=== PATIENT | male | born 1975 | race Caucasian/White ===

== ENCOUNTER → 2017-12-25 | Outpatient (CLI) | payer OTHER ==
[2017-12-25 16:47] LABS: ALBUMIN 3.8 g/dL (3.4-5.0); BILIRUBIN,DIRECT 0.06 mg/dL (0-0.2); TOTAL PROTEIN 7.9 g/dL (6.4-8.2)
[2017-12-27 22:03] LABS: HEPATITIS A ANTIBODY IGM Negative (Negative)
[2017-12-28 08:02] LABS: ANTI-NUCLEAR ANTIBODY TEST None Detected (None Detected); COPPER LEVEL 94 ug/dL (70-140); HEPATITIS B CORE IGM Negative (Negative); HEPATITIS B SURFACE ANTIGEN Negative (Negative)
== END ==
LOC: LAB 15:58 → EDBD 15:58
PROVIDERS: ATTEND Internal Medicine Gastroenterology
DX: R94.5 Abnormal results of liver function studies (principal)
CPT/HCPCS: 36415; 80074; 80076; 82103; 82390; 82525; 82728; 83550; 84466; 85610; 86256; 86308

== ENCOUNTER 2020-03-08 02:10 | Inpatient (IN) ==
[2020-03-08 02:28] VITALS: BMI 42.7
--- NOTE | 2020-03-08 02:51 | DR.GENAD ---
HPI Time Seen Time Seen by Provider: 03/08/20 02:49 PCP Primary Care Physician: BRETT HPI Comment HPI Comment: PATIENT HAVE ANASAKA WITH INCREASE RESPIRATORY DISTRESS. NO FEVER. PATIENT IS SWOLLEN ALL OVER. HAVE INCREASE HIS WEIGHT. SWELLING IN HIS ABDOMEN IS PRESSING ON ORGANS IN UPPER CHEST. HISTORY CHF. BP ELEVATED IN ER AND HAVE HISTORY OF HYPERTENSION. Complaint/Symptoms Chief Complaint Doctors Comments: PATIENT IS 44YR OLD MALE WITH HISTORY OF CHF IS IN ER WITH INCREASIN SOB AND ABDOMINAL DISTENSION TIMES SEVERAL DAYS WORSE TODAY..PATIENT IS SWOLLEN ALL OVER. HAVE CHEST PRESSURE. Chief Complaint:: DIFFICULTY BREATHING-STOMACH PRESSURE COVID-19 Coronavirus risk:travel/contact w/high risk person: No Has patient experienced Coronavirus symptoms: No Nurses notes reviewed Nurses Notes Review: Yes Source History Provided: Patient Mode of Arrival Mode of Arrival: Ambulatory Timing Onset of Chief Complaint: 03/08/20 Came on: Suddenly Duration Duration: Constant Duration: Hours Modifying Factors Improves:: EXERTION. Associated Signs and Symptoms Associated Signs and Symptoms: REST. Other History Other History: CHF, PTSD. PMH PMH Past Medical History: Yes Past Medical History: Anxiety, CHF and Depression Past Medical History Comment: PTSD Past Surgical History: Yes Surgical History: Ortho Surgery Family History History of Family Medical Conditions: No Social History Does patient currently use any type of tobacco product: Yes Have you used tobacco products in the last 12 months: Yes Type of Tobacco Use: Cigarettes How many years tobacco product used: 15 Does any household member use tobacco: No Alcohol Use: Occasionally Do you use any recreational Drugs:: Yes (THC) Lives With: Alone Lives Where: Home Infectious screening In the last 2 months have you had wt loss of >10#?: NO Have you had fever, night sweats or hemotysis?: No Have you traveled outside the country in the last 6 months?: No Isolation: Standard ROS Review of Systems Constitutional: See HPI, Weakness and Fatigue; negative Fever Eyes: No Symptoms Reported and See HPI; negative Blurred Vision, Photophobia and Diplopia ENTM: No Symptoms Reported and See HPI; negative Ear Pain, Nose Discharge, Nose Congestion and Throat Pain Respiratoy: See HPI, Moist Cough and Short of Breath; negative Wheezing Cardiovascular: See HPI, Chest Pain and Edema Gastrointestinal/Abdominal: See HPI, Abdominal Pain and Other (ADDOMINAL DISTENSION.); negative Diarrhea, Nausea and Vomiting Genitourinary: No Symptoms Reported and See HPI; negative Dysuria, Frequency and Hematuria Neurological: See HPI, Headache and Weakness; negative Dizziness Musculoskeletal: See HPI, Back Pain and Muscle Pain Integumentary: See HPI and Change in Color; negative Rash and Juandice Hematologic/Lymphatic: See HPI, Easy Bleeding and Easy Bruising; negative Swollen Glands Endocrine: See HPI and Increased Urine; negative Increased Thirst and Decreased Appetite Psychiatric: No Symptoms Reported and See HPI All Other Systems: Reviewed and Negative PE Vital Signs Vitals: Temperature 97.6 F Pulse Rate [Apical] 123 Pulse Rate 118 Respiratory Rate 26 Blood Pressure [Left Arm] 191/145 Blood Pressure 216/142 O2 Sat by Pulse Oximetry 95 General Limitations: No Limitations General Appearance: Alert and In Distress Head Head Exam: Normal Inspection and Atraumatic Eyes Eye exam: Normal Appearance and PERRL; negative Scleral Icterus and Conjunctival Injection ENT ENT Exam: Normal Exam, Normal Oropharynx, Normal External Ear Exam and TM's Normal Bilaterally External Ear Exam: Normal External Inspection; negative Mastoid Tenderness TM/Canal Exam: Bilateral: Normal Nose Exam: Normal Nose Exam; negative Sinus Tenderness, Nasal Deviation and Septal Hematoma Mouth Exam: Normal Inspection; negative Lip Swelling and Tongue Swelling Throat Exam: Normal Inspection; negative Tonsillar Erythema, Tonsillomegaly and Tonsillar Exudate Neck Neck Exam: Normal Inspection and Trachea Midline; negative Tenderness and Lymphadenopathy Chest Chest Inspection: Normal Inspection and Symmetric Chest Wall Rise; negative Tenderness Respiratory Respiratory Exam: Prolonged Expiratory Phase and Respiratory Distress; negative Accessory Muscle Use and Chest Wall Tenderness Respiratory Exam: Bilateral: Wheezing and Bilateral: Rhonchi and Lower: Wheezing and Lower: Rhonchi Cardiovascular Cardiovascular Exam: Regular Rate, Normal Rhythm, Normal Heart Sounds and +S3; negative Systolic Murmur and Diastolic Murmur Abdominal Exam Abdominal Exam: Normal Inspection, Normal Bowel Sounds and Soft; negative Te nderness Extremities Extremities Exam: Normal Inspection, Normal Capillary Refill and Edema; negative Tenderness and Calf Tenderness Back Back Exam: Normal Inspection and Paraspinal Tenderness; negative Tenderness, (R) CVA Tenderness and (L) CVA Tenderness Neurologic Neurological Exam: Alert, Oriented X3 and CN II-XII Intact; negative Motor Sensory Deficit Psychiatric Psychiatric Exam: Normal Affect and Normal Mood Skin Skin Exam: Other (3 PLUS EDEMA.) MDM Differential Diagnosis Differential Diagnosis: CHF, PNEUMONIA, ASCITIS, ANASAKA, PNEUMOTHORAX. COURSE Treatment Treatment: SEE ORDERS. Education/Counseling Education/Counseling: Patient Educated On: Diagnosis and Needs for Follow Up ROR Labs Reviewed Laboratory Results Reviewed?: Yes Result Diagrams: 03/08/20 03:04 03/08/20 03:04 Laboratory: WBC 16.5 X10^3/uL (3.6-10.0) H 03/08/20 03:04 RBC 5.57 X10^6/uL (4.7-6.0) 03/08/20 03:04 Hgb 16.3 g/dL (13.5-18.0) 03/08/20 03:04 Hct 50.4 % (42.0-54.0) 03/08/20 03:04 MCV 90.5 fL (80.0-100.0) 03/08/20 03:04 MCH 29.4 pg (27.0-34.0) 03/08/20 03:04 MCHC 32.4 g/dL (33.0-35.0) L 03/08/20 03:04 RDW 15.1 % (11.6-16.5) 03/08/20 03:04 Plt Count 206 X10^3/uL (150.0-450.0) 03/08/20 03:04 MPV 9.0 fL (7.4-11.0) 03/08/20 03:04 Neut % (Auto) 77.1 % (42.0-75.0) H 03/08/20 03:04 Lymph % (Auto) 12.7 % (21.0-51.0) L 03/08/20 03:04 [place] % (Auto) 9.3 % (0.0-13.0) 03/08/20 03:04 Eos % (Auto) 0.3 % (0.9-2.9) L 03/08/20 03:04 Baso % (Auto) 0.6 % (0.2-1.0) 03/08/20 03:04 Neut # (Auto) 12.7 x10^3/uL (2.2-4.8) H 03/08/20 03:04 Lymph # (Auto) 2.1 X10^3/uL (1.3-2.9) 03/08/20 03:04 [place] # (Auto) 1.5 x10^3/uL (0.3-0.8) H 03/08/20 03:04 Eos # (Auto) 0.1 x10^3/uL (0.0-0.2) 03/08/20 03:04 Baso # (Auto) 0.1 X10^3/uL (0.0-0.1) 03/08/20 03:04 Absolute Nucleated RBC 0.0 /100WBC 03/08/20 03:04 Sodium 144 mmol/L (136-145) 03/08/20 03:04 Corrected Sodium TNP 03/08/20 03:04 Potassium 4.2 mmol/L (3.5-5.1) 03/08/20 03:04 Chloride 104 mmol/L (98-107) 03/08/20 03:04 Carbon Dioxide 29.1 mmol/L (21-32) 03/08/20 03:04 BUN 23 mg/dL (7-18) H 03/08/20 03:04 Creatinine 1.49 mg/dL (0.70-1.30) H 03/08/20 03:04 Est GFR (MDRD) Af Amer > 60 (>60) 03/08/20 03:04 Est GFR (MDRD) Non-Af 55 (>60) L 03/08/20 03:04 Glucose 105 mg/dL (65-99) H 03/08/20 03:04 Calcium 8.9 mg/dL (8.5-10.1) 03/08/20 03:04 Corrected Calcium TNP 03/08/20 03:04 Total Bilirubin 1.70 mg/dL (0.2-1.0) H 03/08/20 03:04 AST 39 Units/L (15-37) H 03/08/20 03:04 ALT 44 Units/L (12-78) 03/08/20 03:04 Alkaline Phosphatase 64 Units/L (46-116) 03/08/20 03:04 Creatine Kinase 295 Units/L (39-308) 03/08/20 06:06 CK-MB (CK-2) 9.6 ng/mL (0-4.0) H* 03/08/20 06:06 CK/CKMB % Calc 3.3 % (<4) 03/08/20 06:06 Troponin I 0.11 ng/mL (0-1.5) 03/08/20 06:06 Total Protein 7.1 g/dL (6.4-8.2) 03/08/20 03:04 Albumin 3.4 g/dL (3.4-5.0) 03/08/20 03:04 Globulin 3.7 g/dL (2.5-4.5) 03/08/20 03:04 Albumin/Globulin Ratio 0.9 Ratio (1.1-2.1) L 03/08/20 03:04 XRAY XRAY Interpreted by: Radiologist (REPORTS NOTED AND DISCUSSED WITH PATIENT.) EKG Rate: 114 [place]: RAD Rhythm: ST Block: None Hypertrophy: LAE ST: Old, Ant, Lat and Infarct Opioid Opioid Risk Tool Age (Maulik box if 16-45): Yes Total: 1 Total Score Risk Category: Low Risk Copyright: [facility] predicting aberrant behaviors Diagnosis Discharge Problem: Anasarca, Acute pericardial effusion, Accelerated hypertension CHF (congestive heart failure) Qualifiers: Heart failure type: combined systolic and diastolic Heart failure chronicity: acute on chronic Qualified Code(s): I50.43 - Acute on chronic combined systolic (congestive) and diastolic (congestive) heart failure Abdominal ascites Qualifiers: Ascites type: malignant Qualified Code(s): R18.0 - Malignant ascites Instructions Forms: Excuse From Work Precautions for COVID19 Patient Portal Social Distancing
[2020-03-08] MEDS ORDERED: LASIX IVP ONE ×3 (03:08→09:55)
[2020-03-08 03:24] LABS: BASOPHILS # (AUTO) 0.1 X10^3/uL (0.0-0.1); BASOPHILS % (AUTO) 0.6 % (0.2-1.0); EOSINOPHILS # (AUTO) 0.1 x10^3/uL (0.0-0.2); EOSINOPHILS % (AUTO) 0.3 % (0.9-2.9); HEMATOCRIT 50.4 % (42.0-54.0); HEMOGLOBIN 16.3 g/dL (13.5-18.0); LYMPHOCYTES # (AUTO) 2.1 X10^3/uL (1.3-2.9); LYMPHOCYTES % (AUTO) 12.7 % (21.0-51.0); MEAN CORPUSCULAR HEMOGLOBIN 29.4 pg (27.0-34.0); MEAN CORPUSCULAR HGB CONC 32.4 g/dL (33.0-35.0); MEAN CORPUSCULAR VOLUME 90.5 fL (80.0-100.0); MONOCYTES # (AUTO) 1.5 x10^3/uL (0.3-0.8); MONOCYTES % (AUTO) 9.3 % (0.0-13.0); NEUTROPHILS # (AUTO) 12.7 x10^3/uL (2.2-4.8); NEUTROPHILS % (AUTO) 77.1 % (42.0-75.0); PLATELET COUNT 206 X10^3/uL (150.0-450.0); RED BLOOD COUNT 5.57 X10^6/uL (4.7-6.0); RED CELL DISTRIBUTION WIDTH 15.1 % (11.6-16.5); WHITE BLOOD COUNT 16.5 X10^3/uL (3.6-10.0)
[2020-03-08 03:37] LABS: BLOOD UREA NITROGEN 23 mg/dL (7-18); CALCIUM 8.9 mg/dL (8.5-10.1); CARBON DIOXIDE 29.1 mmol/L (21-32); CHLORIDE 104 mmol/L (98-107); CREATININE 1.49 mg/dL (0.70-1.30); SODIUM 144 mmol/L (136-145); eGFR NON BLACK RACES 55 (>60)
--- NOTE | 2020-03-08 03:42 | RAD ---
STUDY: CHEST, 1 VIEWCOMPARISON: NoneHISTORY: DIFFICULTY BREATHING-STOMACH PRESSUREFINDINGS:Cardiomegaly is noted. There is a moderate to large sized left-sided pleural effusion. There is hazy airspace disease in the right mid and right lower lung zone. No right-sided pleural effusion is seen. No evidence of pneumothorax.IMPRESSION:1. Large left pleural effusion2. CardiomegalyElectronically signed by: Christopher Verdin (Mar 08, 2020 03:40:58)
[2020-03-08 04:00] LABS: ALANINE AMINOTRANSFERASE 44 Units/L (12-78); ALBUMIN 3.4 g/dL (3.4-5.0); ALKALINE PHOSPHATASE 64 Units/L (46-116); ASPARTATE AMINO TRANSFERASE 39 Units/L (15-37); CKMB % 3.1 % (<4); CREATINE KINASE 273 Units/L (39-308); TOTAL PROTEIN 7.1 g/dL (6.4-8.2)
[2020-03-08 04:04] LABS: CREATINE KINASE MB 8.5 ng/mL (0-4.0)
[2020-03-08] MEDS ORDERED: CATAPRES TAB 0.2 MG PO ONE ×2 (04:22→06:04)
[2020-03-08] MEDS ORDERED: CATAPRES TAB 0.2 MG ONE ×2 (04:25→06:07)
--- NOTE | 2020-03-08 06:41 | CT ---
HISTORYAbdominal painSTUDYABDOMEN/PELVIS W/O CONTechnique: Axial noncontrast images with coronal and sagittal reformats. Dose reduction procedures were used with mA/kv adjusted for body size. THIS EXAMINATION IS LIMITED DUE TO THE LACK OF INTRAVENOUS AND ORAL CONTRAST. The examination was performed in this manner at the SOLE discretion of the ordering caregiver and without input from Radiology.COMPARISONNoneFINDINGSBilateral pleural effusions are identified. The heart is enlarged. Th ere is a pericardial effusion maximum width 2.57 cm. Atelectatic changes are present in both lung bas es left greater than right. There is a moderately large amount of ascites present. Anasarca is presen t. The liver is normal in size and configuration without focal space-occupying disease only to the li mitations of an unenhanced examination. The spleen and adrenal glands are normal only to the limitati ons of an unenhanced examination. The pancreas is normal to the limitations of an unenhanced examinat ion. The kidneys are unobstructed. No right renal calculi are identified. There is a tiny nonobstruct ing left lower pole renal calculus present. No ureteral calculi are identified. The abdominal aorta i s normal in caliber. No intraperitoneal or retroperitoneal lymphadenopathy of significance is identif ied. The appendix is not identified with absolute certainty. There are no secondary signs of appendic itis present. There are no findings suggestive of colitis or diverticulitis. Examination of the pelvi s demonstrated no evidence for pelvic masses, pelvic fluid, or pelvic lymphadenopathy. No bladder abn ormality is identified. No lytic or blastic skeletal lesions of significance are identified.IMPRESSIO NModerately large amount of ascites present along with anasarca and bilateral pleural effusionsCardio megaly without congestive heart failurePericardial effusion maximum width 2.57 cmTiny nonobstructing left nephrolithiasisLIMITED EXAMINATION DUE TO THE LACK OF INTRAVENOUS AND ORAL CONTRAST.Electronical ly signed by: JELLY GROVE (Mar 08, 2020 06:39:30)
[2020-03-08 06:53] LABS: CKMB % 3.3 % (<4); TROPONIN I 0.11 ng/mL (0-1.5)
[2020-03-08 06:57] LABS: CREATINE KINASE MB 9.6 ng/mL (0-4.0)
[2020-03-08] MEDS: LASIX IVP SCH ×2 (09:59→16:45)
[2020-03-08 10:57] LABS: BILIRUBIN,URINE NEGATIVE (NEGATIVE); BLOOD/HEMOGLOBIN,URINE 1+ (NEGATIVE); GLUCOSE, URINE NEGATIVE (NEGATIVE); KETONES,URINE NEGATIVE (NEGATIVE); LEUKOCYTE ESTERASE ,URINE NEGATIVE (NEGATIVE); NITRITES,URINE NEGATIVE (NEGATIVE); PH,URINE 6.5 (5.0 - 8.0); PROTEIN,URINE 3+ (NEGATIVE); UROBILINOGEN,URINE NORMAL (NORMAL)
[2020-03-08 11:24] LABS: APPEARANCE,URINE CLOUDY (CLEAR); COLOR,URINE YELLOW (YELLOW)
[2020-03-08 11:26] LABS: BACTERIA,URINE NEGATIVE /HPF (NEGATIVE); RBC,URINE NONE SEEN /HPF (0-3); SQUAMOUS EPITHELIAL CELL,UR FEW /HPF (NEGATIVE)
[2020-03-08] MEDS ORDERED: TOPROL XL PO ONE (12:37)
[2020-03-08 13:29] LABS: CKMB % 3.3 % (<4); TROPONIN I 0.11 ng/mL (0-1.5)
[2020-03-08 13:39] LABS: CREATINE KINASE MB 8.9 ng/mL (0-4.0)
[2020-03-08 16:06] LABS: AMMONIA 47 umol/L (11-32)
[2020-03-08] MEDS ORDERED: NS 250 ML IV 250 ML IV ONE (16:40)
[2020-03-08] MEDS: LEVAQUIN PREMIX IV 500 MG 500 MG/100 ML BAG IV SCH (16:45)
[2020-03-08 19:32] LABS: TROPONIN I 0.1 ng/mL (0-1.5)
[2020-03-08 19:36] LABS: CREATINE KINASE MB 8.6 ng/mL (0-4.0)
[2020-03-09 06:50] LABS: ALANINE AMINOTRANSFERASE 37 Units/L (12-78); ALBUMIN 3.2 g/dL (3.4-5.0); ALKALINE PHOSPHATASE 60 Units/L (46-116); ASPARTATE AMINO TRANSFERASE 33 Units/L (15-37); BASOPHILS # (AUTO) 0.1 X10^3/uL (0.0-0.1); BASOPHILS % (AUTO) 0.4 % (0.2-1.0); BLOOD UREA NITROGEN 26 mg/dL (7-18); CALCIUM 8.6 mg/dL (8.5-10.1); CHLORIDE 103 mmol/L (98-107); COR CA(FOR HYPOALB) 9.2 mg/dL (8.5-10.1); CREATININE 1.16 mg/dL (0.70-1.30); EOSINOPHILS % (AUTO) 0.1 % (0.9-2.9); HEMATOCRIT 47.3 % (42.0-54.0); LYMPHOCYTES # (AUTO) 1.5 X10^3/uL (1.3-2.9); LYMPHOCYTES % (AUTO) 11.5 % (21.0-51.0); MEAN CORPUSCULAR HEMOGLOBIN 28.9 pg (27.0-34.0); MEAN CORPUSCULAR HGB CONC 31.8 g/dL (33.0-35.0); MEAN CORPUSCULAR VOLUME 90.9 fL (80.0-100.0); MONOCYTES # (AUTO) 1.5 x10^3/uL (0.3-0.8); MONOCYTES % (AUTO) 11.1 % (0.0-13.0); NEUTROPHILS % (AUTO) 76.9 % (42.0-75.0); PLATELET COUNT 201 X10^3/uL (150.0-450.0); RED CELL DISTRIBUTION WIDTH 14.9 % (11.6-16.5); SODIUM 142 mmol/L (136-145); TOTAL PROTEIN 7.1 g/dL (6.4-8.2); eGFR NON BLACK RACES > 60 (>60)
--- NOTE | 2020-03-09 08:54 | DR.H&P ---
H&P - History & Physical for Day of: H&P Date: 03/08/20 - Chief Complaint Chief Complaint: SOB, SWELLING, ABDOMINAL SWELLING, CHEST PRESSURE - History of Present Illness History of Present Illness: IS A 44 YEAR OLD WHITE MALE WHO PRESENTED TO THE ER WITH COMPLAINTS OF SHORTNESS OF BREATH, GENERALIZED SWELLING, ABDOMINAL DISTENTION, AND CHEST PRESSURE. HE REPORTS THAT SYMTOMS STARTED SEVERAL DAYS AGO AND HAVE PROGRESSIVELY GOTTEN WORSE. HE HAS A PMH OF CHF, HYPERTENSION, AND DRUG ABUSE. HE DENIES USE OF MEDICATIONS FOR CHRONIC CONDITIONS. HE WAS NOTED WITH 3+ PITTING EDEMA AND ABDOMINAL DISTENTION. BILATERAL LUNGS NOTED WITH RHONCHI. ON ARRIVAL, VITALS WERE 97.6-118-24-95%-216/142. LABS WERE OBTAINED. ABNORMAL LAB VALUES INCLUDE THE FOLLOWING: WBC 16.5, INR 1.53, BUN 23, CREATININE 1.49, GLUCOSE 105, TOTAL BILI 1.70, AST 39, CK-MB 8.5. URINALYSIS IS UNREMARKABLE. HE WAS SWABBED FOR COVID- 19. A CHEST XRAY WAS OBTAINED AND REVEALED: Cardiomegaly is noted. There is a moderate to large sized left-sided pleural effusion. There is hazy airspace disease in the right mid and right lower lung zone. No right-sided pleural effusion is seen. No evidence of pneumothorax. EKG REVEALED SINUS TACHYCARDIA WITH HR 114. AN ABDOMEN/PELVIS CT WITHOUT CONTRAST WAS OBTAINED AND REVEALED: Moderately large amount of ascites present along with anasarca and bilateral pleural effusions. Cardiomegaly without congestive heart failure. Pericardial effusion maximum width 2.57 cm. Tiny nonobstructing left nephrolithiasis. AN ECHO WAS OBTAINED AND REVEALED AN EJECTION FRACTION OF 44%. HE WAS GIVEN LASIX 40MG IV X 1, CATAPRES 0.2MG PO X 2 DOSES IN THE ER. BLOOD PRESSURE DECREASED TO 155/91. HE WAS ADMITTED FOR FURTHER EVALUATION AND TREATMENT OF CHF, ANASARCA, PLEUR EFFUSION, AND A PERICARDIAL EFFUSION, AND ASCITES. HE WAS STARTED ON LASIX 40MG IV BID, ALBUMIN 25% IV DAILY, AND LEVAQUIN 500MG IV DAILY. WE WILL CONSULT WITH , GENERAL SURGEON DUE TO LARGE PLEURAL AND PERICARDIAL EFFUSIONS. OTHERWISE, WE WILL FOLLOW UP WITH AM LABS AND CONTINUE TO MONITOR. - Past Medical History Past Medical History: Depression, Anxiety, CHF - Past Surgical History Surgical History: Ortho Surgery - Family History Family Medical History: Hypertension - Social History Does patient currently use any type of tobacco product: Yes Have you used tobacco products in the last 12 months: Yes Type of Tobacco Use: Cigarettes How many years tobacco product used: 15 Does any household member use tobacco: No Alcohol Use: None Drug Use: None - Medications Home Medications: Penicillins Allergy (Verified 03/08/20 03:15) - Review of Systems Constitutional: See HPI, Weakness Eyes: No Symptoms Reported ENT: No Symptoms Reported Respiratory: See HPI, Cough, Shortness of Breath, SOB with Excertion Cardiovascular: Chest Pain, Edema (3+ GENERALIZED EDEMA ) Gastrointestinal: See HPI, Abdominal Pain, Other (ABDOMINAL DISTENTION ) Genitourinary: No Symptoms Reported Musculoskeletal: No Symptoms Reported Skin: No Symptoms Reported Neurological: Weakness - Physical Exam Vital Signs: Temperature 98.3 F Pulse Rate [Apical] 102 Pulse Rate 118 Respiratory Rate 23 Blood Pressure [Left Arm] 150/93 Blood Pressure 216/142 O2 Sat by Pulse Oximetry 95 Oriented: Normal Eyes: Normal Ear: Normal Nose: Normal Throat: Normal Respiratory: Rhonchi Throughout Cardiovascular: Tachycardia, Edema (3+ GENERALIZED EDEMA ). negative: S3, S4, Murmur : Normal Auscultation: Bowel Sounds: Normal Palpation: Normal Tenderness: Normal Skin: Normal Musculoskeletal: Normal Psychiatric: Normal Mood Description: Calm Affect: Normal Speech Pattern: Clear - Assessment/Plan (1) CHF (congestive heart failure) Qualifiers: Heart failure type: combined systolic and diastolic Heart failure chronic ity: acute on chronic Qualified Code(s): I50.43 - Acute on chronic combined systolic (congestive) and diastolic (congestive) heart failure Status: Acute Plan: ADMIT, LASIX 40MG IV BID, ALBUMIN 25% DAILY, LEVAQUIN 500MG IV DAILY, CONTINUE TO MONITOR (2) Acute pericardial effusion Status: Acute Plan: CONSULT GENERAL SURGERY, CONTINUE TO MONITOR (3) Pleural effusion Status: Acute (4) Anasarca Status: Acute (5) Abdominal ascites Qualifiers: Ascites type: other type Qualified Code(s): R18.8 - Other ascites Status: Acute (6) Accelerated hypertension Status: Acute - Allergies Allergies/Adverse Reactions: Allergies Allergy/AdvReac Type Severity Reaction Status Date / Time Penicillins Allergy Verified 03/08/20 03:15
--- NOTE | 2020-03-09 09:00 | RAD ---
HISTORYPLEURAL EFFUSION, PERSISTANT SOB, COUGHSTUDYCHEST, 1 [id number]/27/2020FINDINGSNo change from prior examination demonstrating cardiomegaly and large left-sided pleural effusion. No definite airspace opacity identified within the right lung however there is likely a small right-sided pleural effusion.IMPRESSIONNo change from prior examination demonstrating persistent cardiomegaly, large left-sided pleural effusion and likely small right-sided pleural effusion.Electronically signed by: YEFRI GIFFORD (Mar 09, 2020 08:58:41)
[2020-03-09] MEDS: LEVAQUIN PREMIX IV 500 MG 500 MG/100 ML BAG IV SCH (09:10)
[2020-03-09] MEDS: LASIX IVP SCH ×2 (09:10→17:45)
[2020-03-09 09:30] LABS: CKMB % 2.9 % (<4); TROPONIN I 0.06 ng/mL (0-1.5)
[2020-03-09 09:37] LABS: CREATINE KINASE MB 6.2 ng/mL (0-4.0)
[2020-03-09] MEDS: CORTISPORIN OTIC SUSP AFF EAR SCH ×2 (10:09→20:24)
[2020-03-09] MEDS: ALBUMIN HUMAN 25%- 100 ML 100 ML IV SCH (10:45)
[2020-03-09] MEDS: LOVENOX INJ 40 MG SYR SC SCH (12:20)
[2020-03-10] MEDS ORDERED: CATAPRES TAB 0.2 MG PO ONE (01:11)
[2020-03-10] MEDS ORDERED: CATAPRES TAB 0.2 MG ONE (01:13)
--- NOTE | 2020-03-10 05:53 | RAD ---
STUDY: CHEST, 1 VIEWCOMPARISON: March 09, 2020HISTORY: CHFFINDINGS:Cardiomediastinal contour in large left pleural effusion are stable. Moderate degree of fluid overload is again noted. Pleural parenchymal lung markings are unchanged from the prior study. No gross pneumothorax is seen. No evidence of right-sided pleural effusion. Exam is limited due to poor inspiratory effort.IMPRESSION:There is no significant change from prior study.Electronically signed by: Christohper Verdin (Mar 10, 2020 05:52:22)
[2020-03-10] MEDS: LASIX IVP SCH ×3 (06:11→17:06)
[2020-03-10 06:36] LABS: BASOPHILS # (AUTO) 0.1 X10^3/uL (0.0-0.1); BASOPHILS % (AUTO) 0.8 % (0.2-1.0); EOSINOPHILS # (AUTO) 0.1 x10^3/uL (0.0-0.2); EOSINOPHILS % (AUTO) 0.8 % (0.9-2.9); HEMATOCRIT 43.8 % (42.0-54.0); HEMOGLOBIN 14.2 g/dL (13.5-18.0); LYMPHOCYTES # (AUTO) 1.3 X10^3/uL (1.3-2.9); LYMPHOCYTES % (AUTO) 12.4 % (21.0-51.0); MEAN CORPUSCULAR HEMOGLOBIN 29.5 pg (27.0-34.0); MEAN CORPUSCULAR HGB CONC 32.4 g/dL (33.0-35.0); MEAN CORPUSCULAR VOLUME 90.9 fL (80.0-100.0); MEAN PLATELET VOLUME 8.8 fL (7.4-11.0); MONOCYTES # (AUTO) 1.1 x10^3/uL (0.3-0.8); MONOCYTES % (AUTO) 11.3 % (0.0-13.0); NEUTROPHILS # (AUTO) 7.5 x10^3/uL (2.2-4.8); NEUTROPHILS % (AUTO) 74.7 % (42.0-75.0); PLATELET COUNT 173 X10^3/uL (150.0-450.0); RED BLOOD COUNT 4.82 X10^6/uL (4.7-6.0); WHITE BLOOD COUNT 10.1 X10^3/uL (3.6-10.0)
[2020-03-10 06:52] LABS: AMMONIA 50 umol/L (11-32)
[2020-03-10 07:24] LABS: ALANINE AMINOTRANSFERASE 37 Units/L (12-78); ALBUMIN 3.3 g/dL (3.4-5.0); ALKALINE PHOSPHATASE 61 Units/L (46-116); ASPARTATE AMINO TRANSFERASE 29 Units/L (15-37); BLOOD UREA NITROGEN 28 mg/dL (7-18); CALCIUM 8.4 mg/dL (8.5-10.1); CARBON DIOXIDE 32.1 mmol/L (21-32); CHLORIDE 105 mmol/L (98-107); CKMB % 3.4 % (<4); COR NA(FOR HYPERGLY) 145 mmol/L (136-145); CREATINE KINASE 135 Units/L (39-308); CREATININE 1.15 mg/dL (0.70-1.30); SODIUM 145 mmol/L (136-145); TOTAL PROTEIN 6.9 g/dL (6.4-8.2); TROPONIN I 0.07 ng/mL (0-1.5); eGFR NON BLACK RACES > 60 (>60)
[2020-03-10 07:25] LABS: CREATINE KINASE MB 4.6 ng/mL (0-4.0)
[2020-03-10] MEDS: LOVENOX INJ 40 MG SYR SC SCH (09:17)
[2020-03-10] MEDS: LEVAQUIN PREMIX IV 500 MG 500 MG/100 ML BAG IV SCH (09:17)
[2020-03-10] MEDS: CORTISPORIN OTIC SUSP AFF EAR SCH ×2 (09:18→21:00)
--- NOTE | 2020-03-10 09:38 | PCM.PROG ---
Progress Note - Progress Note for Day of Date of Exam: 03/09/20 - Subjective Subjective: IS BEING TREATED FOR CHF, ACUTE PERICARDIA EFFUSION, PLEURAL EFFUSION, ANASARCA, ASCITES, AND HYPERTENSION. TODAY, HE IS ALERT AND ORIENTED, LYING IN BED ON MORNING ROUNDS. HE CONTINUES WITH COMPLAINTS OF SHORTNESS OF BREATH AND SWELLING. HE ALSO REPORTS AN EARACHE. ON EXAMINATION, HEART IS REGULAR IN RATE AND RHYTHM. BILATERAL LUNGS ARE NOTED WITH RHONCHI THROUGHOUT. ABDOMEN IS DISTENDED AND NON-TENDER WITH NORMAL BOWEL SOUNDS NOTED IN ALL QUADRANTS. HE IS NOTED WITH GENERALIZED 2+ PITTING EDEMA. HIS VITALS THIS MORNING ARE: 98.6-105-26-93%-126/88. LABS WERE OBTAINED. ABNORMAL LAB VALUES INCLUDE THE FOLLOWING: WBC 13.0, BUN 26, GLUCOSE 108, TOTAL BILI 1.60, ALBUMIN 3.2, CK-MB 6.2, BNP 522. A CHEST XRAY WAS REPEATED AND REVEALED: No change from prior examination demonstrating cardiomegaly and large left-sided pleural effusion. No definite airspace opacity identified within the right lung however there is likely a small right-sided pleural effusion. HE IS CURRENTLY RE CEIVING LASIX 40MG IV BID, ALBUMIN 25% IV DAILY, AND LEVAQUIN 500MG IV DAILY. TODAY, WE WILL ADD CORTISPORIN EAR DROPS. WE WILL CONSULT WITH THIS MORNING DUE TO LARGE PLEURAL AND PERICARDIAL EFFUSIONS. WE WILL ALSO RESTRICT FLUIDS TO LESS THAN 1 LITER/DAY. OTHERWISE, WE WILL FOLLOW UP WITH AM LABS AND CHEST XRAY AND CONTINUE TO MONITOR. - Past Medical Family Social History Past Med/Fam/Surg Hx: No changes since H&P Allergies: Allergies Penicillins Allergy (Verified 03/08/20 03:15) - Review of Systems ROS: No change since H&P - Vital Signs and I&O's Vital Signs: Temperature 98.5 F Pulse Rate [Apical] 99 Pulse Rate 118 Respiratory Rate 20 Blood Pressure [Left Arm] 156/102 Blood Pressure 216/142 O2 Sat by Pulse Oximetry 91 Intake and Output: Intake & Output 03/07/20 03/08/20 03/09/20 03/10/20 11:59 11:59 11:59 11:59 Intake Total 1530 / 1530 1010 / 1010 Output Total 925 / 925 2700 / 2700 3800 / 3800 Balance -925 / -925 -1170 / -1170 -2790 / -2790 - Physical Exam Oriented: Normal Eyes: Normal Ear: Normal Nose: Normal Throat: Normal Respiratory: Generalized, Diminished, Rhonchi Cardiovascular: Tachycardia, Edema (3+ GENERALIZED EDEMA ). negative: S3, S4, Murmur : Normal Auscultation: Bowel Sounds: Normal Palpation: Normal Tenderness: Normal Skin: Normal Musculoskeletal: Normal Psychiatric: Normal Mood Description: Calm Affect: Normal Speech Pattern: Clear, Appropriate - Laboratory and Diagnostics Result Diagrams: 03/10/20 05:25 03/10/20 05:25 Labs: Laboratory WBC 10.1 X10^3/uL (3.6-10.0) H 03/10/20 05:25 RBC 4.82 X10^6/uL (4.7-6.0) 03/10/20 05:25 Hgb 14.2 g/dL (13.5-18.0) 03/10/20 05:25 Hct 43.8 % (42.0-54.0) 03/10/20 05:25 MCV 90.9 fL (80.0-100.0) 03/10/20 05:25 MCH 29.5 pg (27.0-34.0) 03/10/20 05:25 MCHC 32.4 g/dL (33.0-35.0) L 03/10/20 05:25 RDW 15.0 % (11.6-16.5) 03/10/20 05:25 Plt Count 173 X10^3/uL (150.0-450.0) 03/10/20 05:25 MPV 8.8 fL (7.4-11.0) 03/10/20 05:25 Neut % (Auto) 74.7 % (42.0-75.0) 03/10/20 05:25 Lymph % (Auto) 12.4 % (21.0-51.0) L 03/10/20 05:25 [place] % (Auto) 11.3 % (0.0-13.0) 03/10/20 05:25 Eos % (Auto) 0.8 % (0.9-2.9) L 03/10/20 05:25 Baso % (Auto) 0.8 % (0.2-1.0) 03/10/20 05:25 Neut # (Auto) 7.5 x10^3/uL (2.2-4.8) H 03/10/20 05:25 Lymph # (Auto) 1.3 X10^3/uL (1.3-2.9) 03/10/20 05:25 [place] # (Auto) 1.1 x10^3/uL (0.3-0.8) H 03/10/20 05:25 Eos # (Auto) 0.1 x10^3/uL (0.0-0.2) 03/10/20 05:25 Baso # (Auto) 0.1 X10^3/uL (0.0-0.1) 03/10/20 05:25 Absolute Nucleated RBC 0.0 /100WBC 03/10/20 05:25 PT 17.9 SECONDS (11.8-14.3) 03/09/20 05:26 INR Target Range - 03/09/20 05:26 INR 1.53 (0.8-1.3) H 03/09/20 05:26 APTT 32.2 SECONDS (22.9-36.5) 03/09/20 05:26 PTT Comment - 03/09/20 05:26 Sodium 145 mmol/L (136-145) 03/10/20 05:25 Corrected Sodium 145 mmol/L (136-145) 03/10/20 05:25 Potassium 3.9 mmol/L (3.5-5.1) 03/10/20 05:25 Chloride 105 mmol/L (98-107) 03/10/20 05:25 Carbon Dioxide 32.1 mmol/L (21-32) H 03/10/20 05:25 BUN 28 mg/dL (7-18) H 03/10/20 05:25 Creatinine 1.15 mg/dL (0.70-1.30) 03/10/20 05:25 Est GFR (MDRD) Af Amer > 60 (>60) 03/10/20 05:25 Est GFR (MDRD) Non-Af > 60 (>60) 03/10/20 05:25 Glucose 114 mg/dL (65-99) H 03/10/20 05:25 Calcium 8.4 mg/dL (8.5-10.1) L 03/10/20 05:25 Corrected Calcium 9.0 mg/dL (8.5-10.1) 03/10/20 05:25 Magnesium 2.0 mg/dL (1.7-2.9) 03/09/20 05:26 Total Bilirubin 0.90 mg/dL (0.2-1.0) 03/10/20 05:25 AST 29 Units/L (15-37) 03/10/20 05:25 ALT 37 Units/L (12-78) 03/10/20 05:25 Alkaline Phosphatase 61 Units/L (46-116) 03/10/20 05:25 Ammonia 50 umol/L (11-32) H 03/10/20 05:25 Creatine Kinase 135 Units/L (39-308) 03/10/20 05:25 CK-MB (CK-2) 4.6 ng/mL (0-4.0) H* 03/10/20 05:25 CK/CKMB % Calc 3.4 % (<4) 03/10/20 05:25 Troponin I 0.07 ng/mL (0-1.5) 03/10/20 05:25 B-Natriuretic Peptide 548 pg/mL (0-79) H* 03/10/20 05:25 Total Protein 6.9 g/dL (6.4-8.2) 03/10/20 05:25 Albumin 3.3 g/dL (3.4-5.0) L 03/10/20 05:25 Globulin 3.6 g/dL (2.5-4.5) 03/10/20 05:25 Albumin/Globulin Ratio 0.9 Ratio (1.1-2.1) L 03/10/20 05:25 Specimen Type Random urine 03/08/20 10:07 Urine Color Yellow (YELLOW) 03/08/20 10:07 Urine Appearance Cloudy (CLEAR) 03/08/20 10:07 Urine pH 6.5 (5.0 - 8.0) 03/08/20 10:07 Ur Specific [place] 1.010 (1.000-1.030) 03/08/20 10:07 Urine Protein 3+ (NEGATIVE) 03/08/20 10:07 Urine Glucose (UA) Negative (NEGATIVE) 03/08/20 10:07 Urine Ketones Negative (NEGATIVE) 03/08/20 10:07 Urine Occult Blood 1+ (NEGATIVE) 03/08/20 10:07 Urine Nitrite Negative (NEGATIVE) 03/08/20 10:07 Urine Bilirubin Negative (NEGATIVE) 03/08/20 10:07 Urine Urobilinogen Normal (NORMAL) 03/08/20 10:07 Ur Leukocyte Esterase Negative (NEGATIVE) 03/08/20 10:07 Urine RBC None seen /HPF (0-3) 03/08/20 10:07 Urine WBC None seen /HPF (0-5) 03/08/20 10:07 Ur Squamous Epith Cells Few /HPF (NEGATIVE) 03/08/20 10:07 Urine Bacteria Negative /HPF (NEGATIVE) 03/08/20 10:07 Ur Culture Indicated? No/not indicated 03/08/20 10:07 Urine Opiates Screen Negative (NEG=<300) 03/08/20 10:07 Urine Methadone Screen Negative (NEG=<300) 03/08/20 10:07 Ur Barbiturates Screen Negative (NEG=<200) 03/08/20 10:07 Ur Phencyclidine Scrn Negative (NEG=<25) 03/08/20 10:07 Ur Amphetamines Screen Negative (NEG=<1000) 03/08/20 10:07 U Benzodiazepines Scrn Negative (NEG=<200) 03/08/20 10:07 Urine Cocaine Screen Negative (NEG=<300) 03/08/20 10:07 U Marijuana (THC) Screen Negative (NEG=<50) 03/08/20 10:07 - Plan (1) CHF (congestive heart failure) Status: Acute Qualifiers: Heart failure type: combined systolic and diastolic Heart failure chronicity: acute on chronic Qualified Code(s): I50.43 - Acute on chronic combined systolic (congestive) and diastolic (congestive) heart failure Plan: LASIX 40MG IV BID, ALBUMIN 25% DAILY, LEVAQUIN 500MG IV DAILY, CONTINUE TO MONITOR (2) Acute pericardial effusion Status: Acute Plan: CONSULT GENERAL SURGERY, CONTINUE TO MONITOR (3) Pleural effusion Status: Acute Plan: LEVAQUIN 500MG IV DAILY (4) Anasarca Status: Acute (5) Abdominal ascites Status: Acute Qualifiers: Ascites type: other type Qualified Code(s): R18.8 - Other ascites (6) Accelerated hypertension Status: Acute
--- NOTE | 2020-03-10 09:48 | PCM.PROG ---
Progress Note - Progress Note for Day of Date of Exam: 03/10/20 - Subjective Subjective: IS BEING TREATED FOR CHF, ACUTE PERICARDIA EFFUSION, PLEURAL EFFUSION, ANASARCA, ASCITES, AND HYPERTENSION. TODAY, HE IS ALERT AND ORIENTED, LYING IN BED ON MORNING ROUNDS. HE CONTINUES WITH COMPLAINTS OF SHORTNESS OF BREATH AND SWELLING. HE ALSO REPORTS AN EARACHE. ON EXAMINATION, HEART IS REGULAR IN RATE AND RHYTHM. BILATERAL LUNGS ARE NOTED WITH RHONCHI THROUGHOUT. ABDOMEN IS DISTENDED AND NON-TENDER WITH NORMAL BOWEL SOUNDS NOTED IN ALL QUADRANTS. HE IS NOTED WITH GENERALIZED 2+ PITTING EDEMA. HIS VITALS THIS MORNING ARE: 98.5-99-20-91%-156/102. LABS WERE OBTAINED. ABNORMAL LAB VALUES INCLUDE THE FOLLOWING: WBC 10.1, CARBON DIOXIDE 32.1, BUN 28, GLUCOSE 114, CALCIUM 8.4, AMMONIA 50, CK-MB 4.6, BNP 548, ALBUMIN 3.3. A CHEST XRAY WAS REPEATED AND REVEALED: Cardiomediastinal contour in large left pleural effusion are stable. Moderate degree of fluid overload is again noted. Pleural parenchymal lung markings are unchanged from the prior study. No gross pneumothorax is seen. No evidence of right-sided pleural effusion. Exam is limited due to poor inspiratory effort. HE IS CURRENTLY RECEIVING LASIX 40MG IV BID, ALBUMIN 25% IV DAILY, AND LEVAQUIN 500MG IV DAILY. WILL EVALUATE PATIENT TODAY. WE WILL CONTINUE TO RESTRICT FLUIDS TO LESS THAN 1 LITER/DAY. O THERWISE, WE WILL FOLLOW UP WITH AM LABS AND CHEST XRAY AND CONTINUE TO MONITOR. - Past Medical Family Social History Past Med/Fam/Surg Hx: No changes since H&P Allergies: Allergies Penicillins Allergy (Verified 03/08/20 03:15) - Review of Systems ROS: No change since H&P - Vital Signs and I&O's Vital Signs: Temperature 98.5 F Pulse Rate [Apical] 99 Pulse Rate 118 Respiratory Rate 20 Blood Pressure [Left Arm] 156/102 Blood Pressure 216/142 O2 Sat by Pulse Oximetry 91 Intake and Output: Intake & Output 03/07/20 03/08/20 03/09/20 03/10/20 11:59 11:59 11:59 11:59 Intake Total 1530 / 1530 1010 / 1010 Output Total 925 / 925 2700 / 2700 3800 / 3800 Balance -925 / -925 -1170 / -1170 -2790 / -2790 - Physical Exam Oriented: Normal Eyes: Normal Ear: Normal Nose: Normal Throat: Normal Respiratory: Normal, Diminished, Rhonchi Cardiovascular: Tachycardia, Edema (3+ GENERALIZED EDEMA ). negative: S3, S4, Murmur : Normal Auscultation: Bowel Sounds: Normal Palpation: Normal Tenderness: Normal Skin: Normal Musculoskeletal: Normal Psychiatric: Normal Mood Description: Calm Affect: Normal Speech Pattern: Clear, Appropriate - Laboratory and Diagnostics Result Diagrams: 03/10/20 05:25 03/10/20 05:25 Labs: Laboratory WBC 10.1 X10^3/uL (3.6-10.0) H 03/10/20 05:25 RBC 4.82 X10^6/uL (4.7-6.0) 03/10/20 05:25 Hgb 14.2 g/dL (13.5-18.0) 03/10/20 05:25 Hct 43.8 % (42.0-54.0) 03/10/20 05:25 MCV 90.9 fL (80.0-100.0) 03/10/20 05:25 MCH 29.5 pg (27.0-34.0) 03/10/20 05:25 MCHC 32.4 g/dL (33.0-35.0) L 03/10/20 05:25 RDW 15.0 % (11.6-16.5) 03/10/20 05:25 Plt Count 173 X10^3/uL (150.0-450.0) 03/10/20 05:25 MPV 8.8 fL (7.4-11.0) 03/10/20 05:25 Neut % (Auto) 74.7 % (42.0-75.0) 03/10/20 05:25 Lymph % (Auto) 12.4 % (21.0-51.0) L 03/10/20 05:25 [place] % (Auto) 11.3 % (0.0-13.0) 03/10/20 05:25 Eos % (Auto) 0.8 % (0.9-2.9) L 03/10/20 05:25 Baso % (Auto) 0.8 % (0.2-1.0) 03/10/20 05:25 Neut # (Auto) 7.5 x10^3/uL (2.2-4.8) H 03/10/20 05:25 Lymph # (Auto) 1.3 X10^3/uL (1.3-2.9) 03/10/20 05:25 [place] # (Auto) 1.1 x10^3/uL (0.3-0.8) H 03/10/20 05:25 Eos # (Auto) 0.1 x10^3/uL (0.0-0.2) 03/10/20 05:25 Baso # (Auto) 0.1 X10^3/uL (0.0-0.1) 03/10/20 05:25 Absolute Nucleated RBC 0.0 /100WBC 03/10/20 05:25 PT 17.9 SECONDS (11.8-14.3) 03/09/20 05:26 INR Target Range - 03/09/20 05:26 INR 1.53 (0.8-1.3) H 03/09/20 05:26 APTT 32.2 SECONDS (22.9-36.5) 03/09/20 05:26 PTT Comment - 03/09/20 05:26 Sodium 145 mmol/L (136-145) 03/10/20 05:25 Corrected Sodium 145 mmol/L (136-145) 03/10/20 05:25 Potassium 3.9 mmol/L (3.5-5.1) 03/10/20 05:25 Chloride 105 mmol/L (98-107) 03/10/20 05:25 Carbon Dioxide 32.1 mmol/L (21-32) H 03/10/20 05:25 BUN 28 mg/dL (7-18) H 03/10/20 05:25 Creatinine 1.15 mg/dL (0.70-1.30) 03/10/20 05:25 Est GFR (MDRD) Af Amer > 60 (>60) 03/10/20 05:25 Est GFR (MDRD) Non-Af > 60 (>60) 03/10/20 05:25 Glucose 114 mg/dL (65-99) H 03/10/20 05:25 Calcium 8.4 mg/dL (8.5-10.1) L 03/10/20 05:25 Corrected Calcium 9.0 mg/dL (8.5-10.1) 03/10/20 05:25 Magnesium 2.0 mg/dL (1.7-2.9) 03/09/20 05:26 Total Bilirubin 0.90 mg/dL (0.2-1.0) 03/10/20 05:25 AST 29 Units/L (15-37) 03/10/20 05:25 ALT 37 Units/L (12-78) 03/10/20 05:25 Alkaline Phosphatase 61 Units/L (46-116) 03/10/20 05:25 Ammonia 50 umol/L (11-32) H 03/10/20 05:25 Creatine Kinase 135 Units/L (39-308) 03/10/20 05:25 CK-MB (CK-2) 4.6 ng/mL (0-4.0) H* 03/10/20 05:25 CK/CKMB % Calc 3.4 % (<4) 03/10/20 05:25 Troponin I 0.07 ng/mL (0-1.5) 03/10/20 05:25 B-Natriuretic Peptide 548 pg/mL (0-79) H* 03/10/20 05:25 Total Protein 6.9 g/dL (6.4-8.2) 03/10/20 05:25 Albumin 3.3 g/dL (3.4-5.0) L 03/10/20 05:25 Globulin 3.6 g/dL (2.5-4.5) 03/10/20 05:25 Albumin/Globulin Ratio 0.9 Ratio (1.1-2.1) L 03/10/20 05:25 Specimen Type Random urine 03/08/20 10:07 Urine Color Yellow (YELLOW) 03/08/20 10:07 Urine Appearance Cloudy (CLEAR) 03/08/20 10:07 Urine pH 6.5 (5.0 - 8.0) 03/08/20 10:07 Ur Specific [place] 1.010 (1.000-1.030) 03/08/20 10:07 Urine Protein 3+ (NEGATIVE) 03/08/20 10:07 Urine Glucose (UA) Negative (NEGATIVE) 03/08/20 10:07 Urine Ketones Negative (NEGATIVE) 03/08/20 10:07 Urine Occult Blood 1+ (NEGATIVE) 03/08/20 10:07 Urine Nitrite Negative (NEGATIVE) 03/08/20 10:07 Urine Bilirubin Negative (NEGATIVE) 03/08/20 10:07 Urine Urobilinogen Normal (NORMAL) 03/08/20 10:07 Ur Leukocyte Esterase Negative (NEGATIVE) 03/08/20 10:07 Urine RBC None seen /HPF (0-3) 03/08/20 10:07 Urine WBC None seen /HPF (0-5) 03/08/20 10:07 Ur Squamous Epith Cells Few /HPF (NEGATIVE) 03/08/20 10:07 Urine Bacteria Negative /HPF (NEGATIVE) 03/08/20 10:07 Ur Culture Indicated? No/not indicated 03/08/20 10:07 Urine Opiates Screen Negative (NEG=<300) 03/08/20 10:07 Urine Methadone Screen Negative (NEG=<300) 03/08/20 10:07 Ur Barbiturates Screen Negative (NEG=<200) 03/08/20 10:07 Ur Phencyclidine Scrn Negative (NEG=<25) 03/08/20 10:07 Ur Amphetamines Screen Negative (NEG=<1000) 03/08/20 10:07 U Benzodiazepines Scrn Negative (NEG=<200) 03/08/20 10:07 Urine Cocaine Screen Negative (NEG=<300) 03/08/20 10:07 U Marijuana (THC) Screen Negative (NEG=<50) 03/08/20 10:07 - Plan (1) CHF (congestive heart failure) Status: Acute Qualifiers: Heart failure type: combined systolic and diastolic Heart failure chronicity: acute on chronic Qualified Code(s): I50.43 - Acute on chronic combined systolic (congestive) and diastolic (congestive) heart failure Plan: LASIX 40MG IV BID, ALBUMIN 25% DAILY, LEVAQUIN 500MG IV DAILY, CONTINUE TO MONITOR (2) Acute pericardial effusion Status: Acute Plan: CONSULT GENERAL SURGERY, CONTINUE TO MONITOR (3) Pleural effusion Status: Acute Plan: LEVAQUIN 500MG IV DAILY (4) Anasarca Status: Acute (5) Abdominal ascites Status: Acute Qualifiers: Ascites type: other type Qualified Code(s): R18.8 - Other ascites (6) Accelerated hypertension Status: Acute
[2020-03-10] MEDS: ALBUMIN HUMAN 25%- 100 ML 100 ML IV SCH (10:13)
[2020-03-10] MEDS: CHRONULAC PO SCH ×4 (10:58→21:00)
[2020-03-10] MEDS: VASOTEC INJ 2.5 MG VIAL IVP SCH ×3 (10:58→21:00)
[2020-03-10] MEDS ORDERED: XYLOCAINE 1 % (PLAIN) ONE (11:13)
--- NOTE | 2020-03-10 11:54 | RAD ---
HISTORYStatus post thoracentesis.STUDYCHEST, 1 VIEWCOMPARISONNone.FINDINGSThe trachea is midline. The cardiac silhouette is enlarged. A left-sided pleural effusion is again demonstrated. There is no evidence of pneumothorax status post thoracentesis. The bony thorax is unremarkable.IMPRESSION1. No evidence of pneumothorax status post thoracentesis.Electronically signed by: EUGENIO SHELL (Mar 10, 2020 11:53:56)
--- NOTE | 2020-03-10 12:16 | OR.IMMED ---
Immediate Post-Op Note - Immediate Post-Op Note Pre-Op Diagnosis: Lt pleural effusion Post-Op Diagnosis: Lt pleural effusion Procedure: Lt thoracentesis Surgeon/Relay Dispatcher: Lis Specimens Removed: pleural fluid 900 cc Drains: NONE Complications: none Condition: Stable (fluid was sent for cytology , chemistry , C&S .repeat chest xray in am)
[2020-03-11] MEDS: VASOTEC INJ 2.5 MG VIAL IVP SCH ×4 (04:00→21:07)
--- NOTE | 2020-03-11 06:09 | RAD ---
HISTORYCongestive heart failureSTUDYCHEST, 1 [id number]/2020FINDINGSPatient is rotated to the left. The heart remains enlarged. No definite congestive heart failure is noted. The right lung and left upper lung [place] are free of infiltrates. Increased density is noted in the retrocardiac area of the left lower lobe obscuring the left hemidiaphragm. This is likely due to residual pleural effusion however underlying infiltrate or atelectasis cannot be excluded. Bony thorax is unremarkable.IMPRESSIONCardiomegaly without definite congestive heart failurePersistent increased density in the retrocardiac area of the left lower lobe obscuring the left hemidiaphragm. This could be due to residual left pleural effusion however underlying infiltrate or atelectasis cannot be excluded.Electronically signed by: JELLY GROVE (Mar 11, 2020 06:07:55)
[2020-03-11 06:16] LABS: BASOPHILS # (AUTO) 0.1 X10^3/uL (0.0-0.1); BASOPHILS % (AUTO) 0.9 % (0.2-1.0); EOSINOPHILS # (AUTO) 0.1 x10^3/uL (0.0-0.2); EOSINOPHILS % (AUTO) 1.3 % (0.9-2.9); HEMOGLOBIN 14.4 g/dL (13.5-18.0); LYMPHOCYTES # (AUTO) 1.5 X10^3/uL (1.3-2.9); LYMPHOCYTES % (AUTO) 17.6 % (21.0-51.0); MEAN CORPUSCULAR HEMOGLOBIN 29.2 pg (27.0-34.0); MEAN CORPUSCULAR HGB CONC 32.1 g/dL (33.0-35.0); MEAN CORPUSCULAR VOLUME 90.9 fL (80.0-100.0); MEAN PLATELET VOLUME 8.5 fL (7.4-11.0); MONOCYTES # (AUTO) 0.9 x10^3/uL (0.3-0.8); MONOCYTES % (AUTO) 10.9 % (0.0-13.0); NEUTROPHILS % (AUTO) 69.3 % (42.0-75.0); PLATELET COUNT 180 X10^3/uL (150.0-450.0); RED BLOOD COUNT 4.94 X10^6/uL (4.7-6.0); RED CELL DISTRIBUTION WIDTH 14.8 % (11.6-16.5); WHITE BLOOD COUNT 8.7 X10^3/uL (3.6-10.0)
[2020-03-11 06:23] LABS: AMMONIA 38 umol/L (11-32)
[2020-03-11 06:30] LABS: ALANINE AMINOTRANSFERASE 53 Units/L (12-78); ALBUMIN 3.4 g/dL (3.4-5.0); ALKALINE PHOSPHATASE 71 Units/L (46-116); ASPARTATE AMINO TRANSFERASE 54 Units/L (15-37); BLOOD UREA NITROGEN 23 mg/dL (7-18); CALCIUM 8.6 mg/dL (8.5-10.1); CARBON DIOXIDE 31.4 mmol/L (21-32); CHLORIDE 107 mmol/L (98-107); COR NA(FOR HYPERGLY) 145 mmol/L (136-145); SODIUM 145 mmol/L (136-145); eGFR NON BLACK RACES > 60 (>60)
[2020-03-11 09:03] LABS: CKMB % 3.7 % (<4); TROPONIN I 0.09 ng/mL (0-1.5)
[2020-03-11] MEDS ORDERED: LASIX IVP ONE (09:21)
[2020-03-11] MEDS: ALBUMIN HUMAN 25%- 100 ML 100 ML IV SCH (09:42)
[2020-03-11] MEDS: LEVAQUIN PREMIX IV 500 MG 500 MG/100 ML BAG IV SCH (09:43)
[2020-03-11] MEDS: CORTISPORIN OTIC SUSP AFF EAR SCH ×2 (09:43→21:07)
[2020-03-11] MEDS: CHRONULAC PO SCH ×4 (09:43→21:06)
[2020-03-11] MEDS: LOVENOX INJ 40 MG SYR SC SCH (09:43)
[2020-03-11] MEDS: NORVASC TAB 5 MG PO SCH (09:46)
--- NOTE | 2020-03-11 15:35 | US ---
HISTORY: HypertensionStudy: Renal ultrasoundComparison:CT 03/08/2020Technique: Multiple ko scale and color flow Doppler images of the kidneys were obtained.Findings:The right kidney is normal in echotexture and size .The right kidney measures 12.5 x 5.8 x 6.7 cm. There is a simple 1.3 cm right renal cyst.No hydronephrosis.The left kidney is unremarkable in its echotexture and size . The left kidney measures 11.0 x 6.1 x 5.3 cm. No focal mass, hydronephrosis, or stones identified .IMPRESSION:1. Simple right renal cyst measuring 1.3 cm. Otherwise unremarkable renal ultrasound. No hydronephrosis.Electronically signed by: GRACY PATEL (Mar 11, 2020 15:34:13)
[2020-03-11] MEDS: LASIX IVP SCH (16:17)
[2020-03-11] MEDS ORDERED: POTASSIUM CHLORIDE LIQ 20 MEQ UDC PO PRN (17:27)
[2020-03-11] MEDS ORDERED: KLOR-CON PO PRN (17:27)
[2020-03-11] MEDS ORDERED: POTASSIUM CHL 40 MEQ/NS 0.45% 500 ML IV PRN (17:27)
[2020-03-11] MEDS ORDERED: MICRO K EXTEN CAP 10 MEQ PO PRN (17:27)
[2020-03-11] MEDS ORDERED: K-RIDER 10 MEQ/NS 100 ML 10 MEQ/100 ML BAG IV PRN (17:27)
[2020-03-11] MEDS ORDERED: POTASSIUM CHL 60 MEQ/NS 0.45% 500 ML IV PRN (17:27)
[2020-03-11] MEDS ORDERED: K-DUR TAB 20 MEQ PO PRN (17:27)
[2020-03-11] MEDS ORDERED: MAGNESIUM SULFATE 1 GRAM/100 mL PREMIX 1 GM/100 ML BAG IV PRN (17:27)
[2020-03-11] MEDS ORDERED: POTASSIUM CHLORIDE LIQ 20 MEQ UDC ONE (17:47)
[2020-03-12] MEDS: VASOTEC INJ 2.5 MG VIAL IVP SCH ×4 (05:20→21:24)
[2020-03-12 05:40] LABS: BASOPHILS # (AUTO) 0.1 X10^3/uL (0.0-0.1); EOSINOPHILS # (AUTO) 0.2 x10^3/uL (0.0-0.2); EOSINOPHILS % (AUTO) 2.2 % (0.9-2.9); HEMATOCRIT 41.8 % (42.0-54.0); HEMOGLOBIN 13.6 g/dL (13.5-18.0); LYMPHOCYTES # (AUTO) 1.2 X10^3/uL (1.3-2.9); LYMPHOCYTES % (AUTO) 16.2 % (21.0-51.0); MEAN CORPUSCULAR HEMOGLOBIN 29.5 pg (27.0-34.0); MEAN CORPUSCULAR HGB CONC 32.5 g/dL (33.0-35.0); MEAN CORPUSCULAR VOLUME 90.7 fL (80.0-100.0); MEAN PLATELET VOLUME 8.2 fL (7.4-11.0); MONOCYTES # (AUTO) 0.8 x10^3/uL (0.3-0.8); MONOCYTES % (AUTO) 10.9 % (0.0-13.0); NEUTROPHILS # (AUTO) 5.2 x10^3/uL (2.2-4.8); NEUTROPHILS % (AUTO) 69.7 % (42.0-75.0); PLATELET COUNT 163 X10^3/uL (150.0-450.0); RED BLOOD COUNT 4.61 X10^6/uL (4.7-6.0); RED CELL DISTRIBUTION WIDTH 14.9 % (11.6-16.5); WHITE BLOOD COUNT 7.4 X10^3/uL (3.6-10.0)
[2020-03-12 05:46] LABS: AMMONIA 38 umol/L (11-32)
[2020-03-12 05:59] LABS: ALANINE AMINOTRANSFERASE 59 Units/L (12-78); ALBUMIN 3.3 g/dL (3.4-5.0); ALKALINE PHOSPHATASE 71 Units/L (46-116); ASPARTATE AMINO TRANSFERASE 47 Units/L (15-37); BLOOD UREA NITROGEN 19 mg/dL (7-18); CALCIUM 8.5 mg/dL (8.5-10.1); CARBON DIOXIDE 33.7 mmol/L (21-32); CHLORIDE 106 mmol/L (98-107); COR CA(FOR HYPOALB) 9.1 mg/dL (8.5-10.1); COR NA(FOR HYPERGLY) 145 mmol/L (136-145); CREATININE 1.25 mg/dL (0.70-1.30); SODIUM 144 mmol/L (136-145); TOTAL PROTEIN 6.7 g/dL (6.4-8.2); eGFR NON BLACK RACES > 60 (>60)
--- NOTE | 2020-03-12 06:27 | RAD ---
HISTORYCongestive heart failureSTUDYCHEST, 1 [id number]/30/2020FINDINGSPatient remains rotated to the left. The heart remains enlarged. No definite congestive heart failure is identified. The right lung and left upper lung salv[place] are clear. There is increased density retrocardiac area left lower lobe obscuring the left hemidiaphragm. This could be due to residual pleural effusion however underlying infiltrate or atelectasis cannot be excluded. Bony thorax is unremarkable.IMPRESSIONNo significant change from the prior examinationElectronically signed by: JELLY GROVE (March 12, 2020 06:26:24)
[2020-03-12] MEDS: LEVAQUIN PREMIX IV 500 MG 500 MG/100 ML BAG IV SCH (08:30)
--- NOTE | 2020-03-12 08:37 | PCM.PROG ---
Progress Note - Progress Note for Day of Date of Exam: 03/11/20 - Subjective Subjective: IS BEING TREATED FOR CHF, ACUTE PERICARDIA EFFUSION, PLEURAL EFFUSION, ANASARCA, ASCITES, AND HYPERTENSION. TODAY, HE IS ALERT AND ORIENTED, LYING IN BED ON MORNING ROUNDS. HE CONTINUES WITH COMPLAINTS OF SHORTNESS OF BREATH AND SWELLING. HE ALSO REPORTS AN EARACHE. ON EXAMINATION, HEART IS REGULAR IN RATE AND RHYTHM. BILATERAL LUNGS ARE NOTED WITH RHONCHI THROUGHOUT. ABDOMEN IS DISTENDED AND NON-TENDER WITH NORMAL BOWEL SOUNDS NOTED IN ALL QUADRANTS. HE IS NOTED WITH GENERALIZED 2+ PITTING EDEMA. HIS VITALS THIS MORNING ARE: 98.5-109-29-96%-132/93. LABS WERE OBTAINED. ABNORMAL LAB VALUES INCLUDE THE FOLLOWING: BUN 23, GLUCOSE 115, AST 54, AMMONIA 38, BNP 746. A CHEST XRAY WAS REPEATED AND REVEALED: Cardiomegaly without definite congestive heart failure. Persistent increased density in the retrocardiac area of the left lower lobe obscuring the left hemidiaphragm. This could be due to residual left pleural effusion however underlying infiltrate or atelectasis cannot be excluded. CONSULTED WITH PATIENT YESTERDAY AND WITHDREW APPROXIMATELY 900ML OF PLEURAL FLUID. FLUID WAS SENT FOR CYTOLOGY AND CULTURE. HE IS CURRENTLY RECEIVING LASIX 40MG IV BID, ENALAPRIL 1.25MG IV Q6H, LACTULOSE 30ML PO QID, ALBUMIN 25% IV DAILY, AND LEVAQUIN 500MG IV DAILY. TODAY, WE WILL INCREASE LASIX TO 80MG IV Q12H AND ADD AMLODIPINE 5MG PO DAILY DUE TO INCREASED BLOOD PRESSURE. WE WILL CONTINUE TO RESTRICT FLUIDS TO LESS THAN 1 LITER/DAY AND ORDER FOR PATIENT TO WEAR THE BIPAP THROUGHOUT THE DAY. OTHERWISE, WE WILL FOLLOW UP WITH AM LABS AND CHEST XRAY AND CONTINUE TO MONITOR. - Past Medical Family Social History Past Med/Fam/Surg Hx: No changes since H&P Allergies: Allergies Penicillins Allergy (Verified 03/08/20 03:15) - Review of Systems ROS: No change since H&P - Vital Signs and I&O's Vital Signs: Temperature 98.4 F Pulse Rate [Apical] 104 Pulse Rate 109 Respiratory Rate 19 Blood Pressure [Left Arm] 166/101 Blood Pressure 136/89 O2 Sat by Pulse Oximetry 95 Intake and Output: Intake & Output 03/09/20 03/10/20 03/11/20 03/12/20 11:59 11:59 11:59 11:59 Intake Total 1530 / 1530 1010 / 1010 690 / 690 570 / 570 Output Total 2700 / 2700 3800 / 3800 1999 / 1999 4800 / 4800 Balance -1170 / -1170 -2790 / -2790 -1310 / -1310 -4230 / -4230 - Physical Exam Oriented: Normal Eyes: Normal Ear: Normal Nose: Normal Throat: Normal Respiratory: Normal, Diminished, Rhonchi Cardiovascular: Tachycardia, Edema (3+ GENERALIZED EDEMA ). negative: S3, S4, Murmur : Normal Auscultation: Bowel Sounds: Normal Palpation: Normal Tenderness: Normal Skin: Normal Musculoskeletal: Normal Psychiatric: Normal Mood Description: Calm Affect: Normal Speech Pattern: Clear, Appropriate - Laboratory and Diagnostics Result Diagrams: 03/12/20 05:21 03/12/20 05:21 Labs: 03/10/20 11:15 Pleural Fluid - Preliminary 03/10/20 11:15 Pleural Fluid Gram Stain - Final Laboratory WBC 7.4 X10^3/uL (3.6-10.0) 03/12/20 05:21 RBC 4.61 X10^6/uL (4.7-6.0) L 03/12/20 05:21 Hgb 13.6 g/dL (13.5-18.0) 03/12/20 05:21 Hct 41.8 % (42.0-54.0) L 03/12/20 05:21 MCV 90.7 fL (80.0-100.0) 03/12/20 05:21 MCH 29.5 pg (27.0-34.0) 03/12/20 05:21 MCHC 32.5 g/dL (33.0-35.0) L 03/12/20 05:21 RDW 14.9 % (11.6-16.5) 03/12/20 05:21 Plt Count 163 X10^3/uL (150.0-450.0) 03/12/20 05:21 MPV 8.2 fL (7.4-11.0) 03/12/20 05:21 Neut % (Auto) 69.7 % (42.0-75.0) 03/12/20 05:21 Lymph % (Auto) 16.2 % (21.0-51.0) L 03/12/20 05:21 [place] % (Auto) 10.9 % (0.0-13.0) 03/12/20 05:21 Eos % (Auto) 2.2 % (0.9-2.9) 03/12/20 05:21 Baso % (Auto) 1.0 % (0.2-1.0) 03/12/20 05:21 Neut # (Auto) 5.2 x10^3/uL (2.2-4.8) H 03/12/20 05:21 Lymph # (Auto) 1.2 X10^3/uL (1.3-2.9) L 03/12/20 05:21 [place] # (Auto) 0.8 x10^3/uL (0.3-0.8) 03/12/20 05:21 Eos # (Auto) 0.2 x10^3/uL (0.0-0.2) 03/12/20 05:21 Baso # (Auto) 0.1 X10^3/uL (0.0-0.1) 03/12/20 05:21 Absolute Nucleated RBC 0.1 /100WBC 03/12/20 05:21 PT 17.9 SECONDS (11.8-14.3) 03/09/20 05:26 INR Target Range - 03/09/20 05:26 INR 1.53 (0.8-1.3) H 03/09/20 05:26 APTT 32.2 SECONDS (22.9-36.5) 03/09/20 05:26 PTT Comment - 03/09/20 05:26 Sodium 144 mmol/L (136-145) 03/12/20 05:21 Corrected Sodium 145 mmol/L (136-145) 03/12/20 05:21 Potassium 3.6 mmol/L (3.5-5.1) 03/12/20 05:21 Chloride 106 mmol/L (98-107) 03/12/20 05:21 Carbon Dioxide 33.7 mmol/L (21-32) H 03/12/20 05:21 BUN 19 mg/dL (7-18) H 03/12/20 05:21 Creatinine 1.25 mg/dL (0.70-1.30) 03/12/20 05:21 Est GFR (MDRD) Af Amer > 60 (>60) 03/12/20 05:21 Est GFR (MDRD) Non-Af > 60 (>60) 03/12/20 05:21 Glucose 132 mg/dL (65-99) H 03/12/20 05:21 Calcium 8.5 mg/dL (8.5-10.1) 03/12/20 05:21 Corrected Calcium 9.1 mg/dL (8.5-10.1) 03/12/20 05:21 Magnesium 2.0 mg/dL (1.7-2.9) 03/09/20 05:26 Total Bilirubin 0.80 mg/dL (0.2-1.0) 03/12/20 05:21 AST 47 Units/L (15-37) H 03/12/20 05:21 ALT 59 Units/L (12-78) 03/12/20 05:21 Alkaline Phosphatase 71 Units/L (46-116) 03/12/20 05:21 Ammonia 38 umol/L (11-32) H 03/12/20 05:21 Creatine Kinase 107 Units/L (39-308) 03/11/20 05:22 CK-MB (CK-2) 4.0 ng/mL (0-4.0) 03/11/20 05:22 CK/CKMB % Calc 3.7 % (<4) 03/11/20 05:22 Troponin I 0.09 ng/mL (0-1.5) 03/11/20 05:22 B-Natriuretic Peptide 672 pg/mL (0-79) H* 03/12/20 05:21 Total Protein 6.7 g/dL (6.4-8.2) 03/12/20 05:21 Albumin 3.3 g/dL (3.4-5.0) L 03/12/20 05:21 Globulin 3.4 g/dL (2.5-4.5) 03/12/20 05:21 Albumin/Globulin Ratio 1.0 Ratio (1.1-2.1) L 03/12/20 05:21 Specimen Type Random urine 03/08/20 10:07 Urine Color Yellow (YELLOW) 03/08/20 10:07 Urine Appearance Cloudy (CLEAR) 03/08/20 10:07 Urine pH 6.5 (5.0 - 8.0) 03/08/20 10:07 Ur Specific [place] 1.010 (1.000-1.030) 03/08/20 10:07 Urine Protein 3+ (NEGATIVE) 03/08/20 10:07 Urine Glucose (UA) Negative (NEGATIVE) 03/08/20 10:07 Urine Ketones Negative (NEGATIVE) 03/08/20 10:07 Urine Occult Blood 1+ (NEGATIVE) 03/08/20 10:07 Urine Nitrite Negative (NEGATIVE) 03/08/20 10:07 Urine Bilirubin Negative (NEGATIVE) 03/08/20 10:07 Urine Urobilinogen Normal (NORMAL) 03/08/20 10:07 Ur Leukocyte Esterase Negative (NEGATIVE) 03/08/20 10:07 Urine RBC None seen /HPF (0-3) 03/08/20 10:07 Urine WBC None seen /HPF (0-5) 03/08/20 10:07 Ur Squamous Epith Cells Few /HPF (NEGATIVE) 03/08/20 10:07 Urine Bacteria Negative /HPF (NEGATIVE) 03/08/20 10:07 Ur Culture Indicated? No/not indicated 03/08/20 10:07 Fluid pH 8.0 03/10/20 11:15 Peritoneal Glucose Cancelled 03/10/20 11:15 Pleural Glucose 122 03/10/20 11:15 Urine Opiates Screen Negative (NEG=<300) 03/08/20 10:07 Urine Methadone Screen Negative (NEG=<300) 03/08/20 10:07 Ur Barbiturates Screen Negative (NEG=<200) 03/08/20 10:07 Ur Phencyclidine Scrn Negative (NEG=<25) 03/08/20 10:07 Ur Amphetamines Screen Negative (NEG=<1000) 03/08/20 10:07 U Benzodiazepines Scrn Negative (NEG=<200) 03/08/20 10:07 Urine Cocaine Screen Negative (NEG=<300) 03/08/20 10:07 U Marijuana (THC) Screen Negative (NEG=<50) 03/08/20 10:07 Cytology Specimen To follow 03/10/20 11:15 - Plan (1) CHF (congestive heart failure) Status: Acute Qualifiers: Heart failure type: combined systolic and diastolic Heart failure chronicity: acute on chronic Qualified Code(s): I50.43 - Acute on chronic combined systolic (congestive) and diastolic (congestive) heart failure Plan: LASIX 80MG IV BID, ALBUMIN 25% DAILY, LEVAQUIN 500MG IV DAILY, CONTINUE TO MONITOR (2) Acute pericardial effusion Status: Acute Plan: CONTINUE TO MONITOR (3) Pleural effusion Status: Acute Plan: LEVAQUIN 500MG IV DAILY, THORACENTESIS YESTERDAY, CONTINUE TO MONITOR (4) Anasarca Status: Acute (5) Abdominal ascites Status: Acute Qualifiers: Ascites type: other type Qualified Code(s): R18.8 - Other ascites (6) Accelerated hypertension Status: Acute Plan: ENALAPRIL 1.25MG IV Q6H, AMLODIPINE 5MG PO DAILY, CONTINUE TO MONITOR
[2020-03-12] MEDS: CORTISPORIN OTIC SUSP AFF EAR SCH ×2 (09:45→21:24)
[2020-03-12] MEDS: ALBUMIN HUMAN 25%- 100 ML 100 ML IV SCH (09:45)
[2020-03-12] MEDS: CHRONULAC PO SCH ×4 (09:45→21:24)
[2020-03-12] MEDS: LASIX IVP SCH ×2 (09:45→17:10)
[2020-03-12] MEDS: LOVENOX INJ 40 MG SYR SC SCH (09:46)
[2020-03-12] MEDS: NORVASC TAB 5 MG PO SCH (09:47)
--- NOTE | 2020-03-12 13:51 | PCM.PROG ---
Progress Note - Progress Note for Day of Date of Exam: 03/12/20 - Subjective Subjective: IS BEING TREATED FOR CHF, ACUTE PERICARDIA EFFUSION, PLEURAL EFFUSION, ANASARCA, ASCITES, AND HYPERTENSION. PERFORMED A THORACENTESIS TWO DAYS AGO AND DRAINED APPROXIMATELY 900 ML OR PLEURAL FLUID. TODAY, HE IS ALERT AND ORIENTED, LYING IN BED ON MORNING ROUNDS. HE CONTINUES WITH COMPLAINTS OF SHORTNESS OF BREATH BUT REPORTS SLIGHT IMPROVEMENT SINCE YESTERDAY. ON EXAMINATION, HEART IS REGULAR IN RATE AND RHYTHM. BILATERAL LUNGS ARE NOTED WITH RHONCHI THROUGHOUT. ABDOMEN IS DISTENDED AND NON-TENDER WITH NORMAL BOWEL SOUNDS NOTED IN ALL QUADRANTS. HE CONTINUES WITH GENERALIZED 2+ PITTING EDEMA. HIS VITALS THIS MORNING ARE: 98.5-98-20-97%-139/79. LABS WERE OBTAINED. ABNORMAL LAB VALUES INCLUDE THE FOLLOWING: RBC 4.61, HCT 41.8, CARBON DIOXIDE 33.7, BUN 19, GLUCOSE 132, AST 47, AMMONIA 38, BNP 672, ALBUMIN 3.3. A CHEST XRAY WAS REPEATED AND REVEALED: Patient remains rotated to the left. The heart remains enlarged. No definite congestive heart failure is identified. The right lung and left upper lung salvador are clear. There is increased density retrocardiac area left lower lobe obscuring the left hemidiaphragm. This could be due to residual pleural effusion however underlying infiltrate or atelectasis cannot be excluded. Bony thorax is unremarkable. HE IS CURRENTLY RECEIVING LASIX 80MG IV BID, ENALAPRIL 1.25MG IV Q6H, AMLODIPINE 5MG PO DAILY, LACTULOSE 30ML PO QID, ALBUMIN 25% IV DAILY, AND LEVAQUIN 500MG IV DAILY. TODAY, WE WILL CONTINUE WITH CURRENT PLAN OF CARE. WE WILL CONTINUE TO RESTRICT FLUIDS TO LESS THAN 1 LITER/DAY AND ORDER FOR PATIENT TO CONTINUE TO WEAR THE BIPAP THROUGHOUT THE DAY. OTHERWISE, WE WILL FOLLOW UP WITH AM LABS AND CHEST XRAY AND CONTINUE TO MONITOR. - Past Medical Family Social History Past Med/Fam/Surg Hx: No changes since H&P Allergies: Allergies Penicillins Allergy (Verified 03/08/20 03:15) - Review of Systems ROS: No change since H&P - Vital Signs and I&O's Vital Signs: Temperature 98 F Pulse Rate [Apical] 104 Pulse Rate 111 Respiratory Rate 20 Blood Pressure [Left Arm] 166/101 Blood Pressure 160/99 O2 Sat by Pulse Oximetry 97 Intake and Output: Intake & Output 03/10/20 03/11/20 03/12/20 03/13/20 11:59 11:59 11:59 11:59 Intake Total 1010 / 1010 690 / 690 570 / 570 Output Total 3800 / 3800 1999 / 1999 4800 / 4800 Balance -2790 / -2790 -1310 / -1310 -4230 / -4230 - Physical Exam Oriented: Normal Eyes: Normal Ear: Normal Nose: Normal Throat: Normal Respiratory: Normal, Diminished, Rhonchi Cardiovascular: Tachycardia, Edema (3+ GENERALIZED EDEMA ). negative: S3, S4, Murmur : Normal Auscultation: Bowel Sounds: Normal Tenderness: Normal Skin: Normal Musculoskeletal: Normal Psychiatric: Normal Mood Description: Calm Affect: Normal Speech Pattern: Clear, Appropriate - Laboratory and Diagnostics Result Diagrams: 03/12/20 05:21 03/12/20 05:21 Labs: 03/10/20 11:15 Pleural Fluid - Preliminary 03/10/20 11:15 Pleural Fluid Gram Stain - Final Laboratory WBC 7.4 X10^3/uL (3.6-10.0) 03/12/20 05:21 RBC 4.61 X10^6/uL (4.7-6.0) L 03/12/20 05:21 Hgb 13.6 g/dL (13.5-18.0) 03/12/20 05:21 Hct 41.8 % (42.0-54.0) L 03/12/20 05:21 MCV 90.7 fL (80.0-100.0) 03/12/20 05:21 MCH 29.5 pg (27.0-34.0) 03/12/20 05:21 MCHC 32.5 g/dL (33.0-35.0) L 03/12/20 05:21 RDW 14.9 % (11.6-16.5) 03/12/20 05:21 Plt Count 163 X10^3/uL (150.0-450.0) 03/12/20 05:21 MPV 8.2 fL (7.4-11.0) 03/12/20 05:21 Neut % (Auto) 69.7 % (42.0-75.0) 03/12/20 05:21 Lymph % (Auto) 16.2 % (21.0-51.0) L 03/12/20 05:21 Blanco % (Auto) 10.9 % (0.0-13.0) 03/12/20 05:21 Eos % (Auto) 2.2 % (0.9-2.9) 03/12/20 05:21 Baso % (Auto) 1.0 % (0.2-1.0) 03/12/20 05:21 Neut # (Auto) 5.2 x10^3/uL (2.2-4.8) H 03/12/20 05:21 Lymph # (Auto) 1.2 X10^3/uL (1.3-2.9) L 03/12/20 05:21 Blanco # (Auto) 0.8 x10^3/uL (0.3-0.8) 03/12/20 05:21 Eos # (Auto) 0.2 x10^3/uL (0.0-0.2) 03/12/20 05:21 Baso # (Auto) 0.1 X10^3/uL (0.0-0.1) 03/12/20 05:21 Absolute Nucleated RBC 0.1 /100WBC 03/12/20 05:21 PT 17.9 SECONDS (11.8-14.3) 03/09/20 05:26 INR Target Range - 03/09/20 05:26 INR 1.53 (0.8-1.3) H 03/09/20 05:26 APTT 32.2 SECONDS (22.9-36.5) 03/09/20 05:26 PTT Comment - 03/09/20 05:26 Sodium 144 mmol/L (136-145) 03/12/20 05:21 Corrected Sodium 145 mmol/L (136-145) 03/12/20 05:21 Potassium 3.6 mmol/L (3.5-5.1) 03/12/20 05:21 Chloride 106 mmol/L (98-107) 03/12/20 05:21 Carbon Dioxide 33.7 mmol/L (21-32) H 03/12/20 05:21 BUN 19 mg/dL (7-18) H 03/12/20 05:21 Creatinine 1.25 mg/dL (0.70-1.30) 03/12/20 05:21 Est GFR (MDRD) Af Amer > 60 (>60) 03/12/20 05:21 Est GFR (MDRD) Non-Af > 60 (>60) 03/12/20 05:21 Glucose 132 mg/dL (65-99) H 03/12/20 05:21 Calcium 8.5 mg/dL (8.5-10.1) 03/12/20 05:21 Corrected Calcium 9.1 mg/dL (8.5-10.1) 03/12/20 05:21 Magnesium 2.0 mg/dL (1.7-2.9) 03/09/20 05:26 Total Bilirubin 0.80 mg/dL (0.2-1.0) 03/12/20 05:21 AST 47 Units/L (15-37) H 03/12/20 05:21 ALT 59 Units/L (12-78) 03/12/20 05:21 Alkaline Phosphatase 71 Units/L (46-116) 03/12/20 05:21 Ammonia 38 umol/L (11-32) H 03/12/20 05:21 Creatine Kinase 107 Units/L (39-308) 03/11/20 05:22 CK-MB (CK-2) 4.0 ng/mL (0-4.0) 03/11/20 05:22 CK/CKMB % Calc 3.7 % (<4) 03/11/20 05:22 Troponin I 0.09 ng/mL (0-1.5) 03/11/20 05:22 B-Natriuretic Peptide 672 pg/mL (0-79) H* 03/12/20 05:21 Total Protein 6.7 g/dL (6.4-8.2) 03/12/20 05:21 Albumin 3.3 g/dL (3.4-5.0) L 03/12/20 05:21 Globulin 3.4 g/dL (2.5-4.5) 03/12/20 05:21 Albumin/Globulin Ratio 1.0 Ratio (1.1-2.1) L 03/12/20 05:21 Specimen Type Random urine 03/08/20 10:07 Urine Color Yellow (YELLOW) 03/08/20 10:07 Urine Appearance Cloudy (CLEAR) 03/08/20 10:07 Urine pH 6.5 (5.0 - 8.0) 03/08/20 10:07 Ur Specific Murray 1.010 (1.000-1.030) 03/08/20 10:07 Urine Protein 3+ (NEGATIVE) 03/08/20 10:07 Urine Glucose (UA) Negative (NEGATIVE) 03/08/20 10:07 Urine Ketones Negative (NEGATIVE) 03/08/20 10:07 Urine Occult Blood 1+ (NEGATIVE) 03/08/20 10:07 Urine Nitrite Negative (NEGATIVE) 03/08/20 10:07 Urine Bilirubin Negative (NEGATIVE) 03/08/20 10:07 Urine Urobilinogen Normal (NORMAL) 03/08/20 10:07 Ur Leukocyte Esterase Negative (NEGATIVE) 03/08/20 10:07 Urine RBC None seen /HPF (0-3) 03/08/20 10:07 Urine WBC None seen /HPF (0-5) 03/08/20 10:07 Ur Squamous Epith Cells Few /HPF (NEGATIVE) 03/08/20 10:07 Urine Bacteria Negative /HPF (NEGATIVE) 03/08/20 10:07 Ur Culture Indicated? No/not indicated 03/08/20 10:07 Fluid pH 8.0 03/10/20 11:15 Peritoneal Glucose Cancelled 03/10/20 11:15 Pleural Glucose 122 03/10/20 11:15 Urine Opiates Screen Negative (NEG=<300) 03/08/20 10:07 Urine Methadone Screen Negative (NEG=<300) 03/08/20 10:07 Ur Barbiturates Screen Negative (NEG=<200) 03/08/20 10:07 Ur Phencyclidine Scrn Negative (NEG=<25) 03/08/20 10:07 Ur Amphetamines Screen Negative (NEG=<1000) 03/08/20 10:07 U Benzodiazepines Scrn Negative (NEG=<200) 03/08/20 10:07 Urine Cocaine Screen Negative (NEG=<300) 03/08/20 10:07 U Marijuana (THC) Screen Negative (NEG=<50) 03/08/20 10:07 Cytology Specimen To follow 03/10/20 11:15 Miscellaneous Test Covid-19 03/08/20 15:00 - Plan (1) CHF (congestive heart failure) Status: Acute Qualifiers: Heart failure type: combined systolic and diastolic Heart failure chronicity: acute on chronic Qualified Code(s): I50.43 - Acute on chronic combined systolic (congestive) and diastolic (congestive) heart failure Plan: LASIX 80MG IV BID, ALBUMIN 25% DAILY, LEVAQUIN 500MG IV DAILY, CONTINUE TO MONITOR (2) Acute pericardial effusion Status: Acute Plan: CONTINUE TO MONITOR (3) Pleural effusion Status: Acute Plan: LEVAQUIN 500MG IV DAILY, THORACENTESIS YESTERDAY, CONTINUE TO MONITOR (4) Anasarca Status: Acute (5) Abdominal ascites Status: Acute Qualifiers: Ascites type: other type Qualified Code(s): R18.8 - Other ascites (6) Accelerated hypertension Status: Acute Plan: ENALAPRIL 1.25MG IV Q6H, AMLODIPINE 5MG PO DAILY, CONTINUE TO MONITOR
[2020-03-13] MEDS: VASOTEC INJ 2.5 MG VIAL IVP SCH ×2 (04:32→09:38)
[2020-03-13 06:20] LABS: BASOPHILS # (AUTO) 0.1 X10^3/uL (0.0-0.1); BASOPHILS % (AUTO) 1.2 % (0.2-1.0); EOSINOPHILS # (AUTO) 0.2 x10^3/uL (0.0-0.2); EOSINOPHILS % (AUTO) 2.6 % (0.9-2.9); HEMOGLOBIN 13.6 g/dL (13.5-18.0); LYMPHOCYTES # (AUTO) 1.2 X10^3/uL (1.3-2.9); LYMPHOCYTES % (AUTO) 15.2 % (21.0-51.0); MEAN CORPUSCULAR HEMOGLOBIN 29.6 pg (27.0-34.0); MEAN CORPUSCULAR HGB CONC 32.4 g/dL (33.0-35.0); MEAN CORPUSCULAR VOLUME 91.5 fL (80.0-100.0); MEAN PLATELET VOLUME 8.8 fL (7.4-11.0); MONOCYTES # (AUTO) 0.8 x10^3/uL (0.3-0.8); MONOCYTES % (AUTO) 10.2 % (0.0-13.0); NEUTROPHILS # (AUTO) 5.7 x10^3/uL (2.2-4.8); NEUTROPHILS % (AUTO) 70.8 % (42.0-75.0); PLATELET COUNT 162 X10^3/uL (150.0-450.0); RED BLOOD COUNT 4.59 X10^6/uL (4.7-6.0); RED CELL DISTRIBUTION WIDTH 14.7 % (11.6-16.5)
[2020-03-13 06:36] LABS: ALANINE AMINOTRANSFERASE 55 Units/L (12-78); ALBUMIN 3.4 g/dL (3.4-5.0); ALKALINE PHOSPHATASE 77 Units/L (46-116); ASPARTATE AMINO TRANSFERASE 36 Units/L (15-37); BLOOD UREA NITROGEN 19 mg/dL (7-18); CALCIUM 8.4 mg/dL (8.5-10.1); CARBON DIOXIDE 34.8 mmol/L (21-32); CHLORIDE 106 mmol/L (98-107); COR NA(FOR HYPERGLY) 147 mmol/L (136-145); CREATININE 1.38 mg/dL (0.70-1.30); SODIUM 146 mmol/L (136-145); TOTAL PROTEIN 6.8 g/dL (6.4-8.2); eGFR NON BLACK RACES > 60 (>60)
[2020-03-13 06:41] LABS: AMMONIA 37 umol/L (11-32)
--- NOTE | 2020-03-13 06:52 | RAD ---
HISTORYSOBSTUDYPortable AP [id number] cardiomegaly, clear right lung and ill-defined retrocardia c opacity consistent with airspace disease in the left lower lung. The left upper lobe is clear.IMPRE SSIONNo change in appearance of the chest since 1 day prior.Electronically signed by: VINOD AMEZCUA (March 13, 2020 06:51:09)
[2020-03-13] MEDS: ALBUMIN HUMAN 25%- 100 ML 100 ML IV SCH (09:37)
[2020-03-13] MEDS: LASIX IVP SCH (09:38)
[2020-03-13] MEDS: CHRONULAC PO SCH (09:38)
[2020-03-13] MEDS: LEVAQUIN PREMIX IV 500 MG 500 MG/100 ML BAG IV SCH (09:38)
[2020-03-13] MEDS: NORVASC TAB 5 MG PO SCH (09:39)
[2020-03-13] MEDS: CORTISPORIN OTIC SUSP AFF EAR SCH (09:39)
[2020-03-13] MEDS: LOVENOX INJ 40 MG SYR SC SCH (09:52)
[2020-03-13 11:51] VITALS: BP 161/95
== END 2020-03-13 13:20 | disposition home or self-care (01) | DRG 292 ==
LOC: ER 02:10 → OBS 08:54 → ICU 13:01 → MED/SURG 03-11 18:00
PROVIDERS: ADMIT Internal Medicine; ATTEND Internal Medicine
DX: I31.3 Pericardial effusion (noninflammatory); I10 Essential (primary) hypertension; R18.0 Malignant ascites; I50.43 Acute on chronic combined systolic (congestive) and diastolic (congestive) heart failure; Z11.59 Encounter for screening for other viral diseases; R94.31 Abnormal electrocardiogram [ECG] [EKG]; J90 Pleural effusion, not elsewhere classified; R79.1 Abnormal coagulation profile; I11.0 Hypertensive heart disease with heart failure